=== PATIENT | male | born 1950 | race Hispanic/Latino ===

== ENCOUNTER 2017-07-09 21:16 | Observation (INO) | payer MEDICARE ==
[~2017-07-09] VITALS: Ht 177.8 cm; Wt 95.2 kg
[2017-07-09 21:51] LABS: BASOPHILS % (AUTO) 0.7 % (0.0-5.0); EOSINOPHILS % (AUTO) 4.2 % (0.0-8.0); LYMPHOCYTES % (AUTO) 69.6 % (21.0-51.0); MEAN CORPUSCULAR HEMOGLOBIN 30.5 pg (27.0-33.0); MEAN CORPUSCULAR HGB CONC 34.7 g/dL (32.0-36.0); MEAN CORPUSCULAR VOLUME 87.9 fL (79-99); MONOCYTES % (AUTO) 8.1 % (3.0-13.0); NEUTROPHILS % (AUTO) 17.4 % (40.0-77.0); NUCLEATED RED BLOOD CELLS 0.2 % (0.0-0.19); PLATELET COUNT (AUTO) 216 K/uL (130-400); RED CELL DISTRIBUTION WIDTH 13.6 % (11.0-15.5); WHITE BLOOD COUNT (AUTO) 3.7 K/uL (4.8-10.8)
[2017-07-09] MEDS ORDERED: MORPHINE SULFATE 2 MG/ML 1ML SYG ONE (21:54)
[2017-07-09 22:03] LABS: CREATININE 1.3 mg/dL (0.5-1.5); POTASSIUM 3.5 mmol/L (3.5-5.1)
[2017-07-09 22:04] LABS: INR 1.02 (0.85-1.15); PARTIAL THROMBOPLASTIN TIME 26.1 SEC (26.3-35.5); PROTHROMBIN TIME 10.7 SEC (9.6-11.6)
[2017-07-09 22:07] LABS: ALBUMIN 3.9 g/dL (3.5-5.0); BILIRUBIN,TOTAL 0.4 mg/dL (0.2-1.0); TOTAL PROTEIN, SERUM 7.9 g/dL (6.0-8.3)
[2017-07-09] MEDS ORDERED: KETOROLAC TROMETHAMINE 30MG/ML ONE (22:13)
[2017-07-09 22:28] LABS: B-TYPE NATRIURETIC PEPTIDE 9 pg/mL (0-100)
[2017-07-10] VITALS (29 sets, daily range): BP systolic 91–128; BP diastolic 52–79
[2017-07-10 05:34] LABS: BASOPHILS % (AUTO) 0.8 % (0.0-5.0); EOSINOPHILS % (AUTO) 3.8 % (0.0-8.0); HEMATOCRIT 46.5 % (42-54); LYMPHOCYTES % (AUTO) 49.3 % (21.0-51.0); MEAN CORPUSCULAR HGB CONC 35.4 g/dL (32.0-36.0); MEAN CORPUSCULAR VOLUME 87.6 fL (79-99); MONOCYTES % (AUTO) 8.4 % (3.0-13.0); NEUTROPHILS % (AUTO) 37.7 % (40.0-77.0); NUCLEATED RED BLOOD CELLS 0.1 % (0.0-0.19); PLATELET COUNT (AUTO) 202 K/uL (130-400); RED BLOOD CELL COUNT(AUTO) 5.31 MIL/uL (4.50-6.20); RED CELL DISTRIBUTION WIDTH 13.5 % (11.0-15.5); WHITE BLOOD COUNT (AUTO) 3.5 K/uL (4.8-10.8)
[2017-07-10 05:58] LABS: INR 1.02 (0.85-1.15); PARTIAL THROMBOPLASTIN TIME 26.4 SEC (26.3-35.5); PROTHROMBIN TIME 10.7 SEC (9.6-11.6)
[2017-07-10 06:14] LABS: ALBUMIN 3.3 g/dL (3.5-5.0); BILIRUBIN,TOTAL 0.4 mg/dL (0.2-1.0); CREATININE 1.2 mg/dL (0.5-1.5); POTASSIUM 4.1 mmol/L (3.5-5.1); TOTAL PROTEIN, SERUM 6.8 g/dL (6.0-8.3)
[2017-07-10] MEDS ORDERED: LACTATED RINGERS 1000ML 1,000 ML IV ONE (06:16)
[2017-07-10] MEDS ORDERED: LEVOFLOXACIN 500 MG/D5W 100 ML 100 ML ONE (06:43)
[2017-07-10] MEDS ORDERED: FENTANYL CITRATE PF 50 MCG/1 ML 2ML VIAL ONE (06:45)
[2017-07-10] MEDS ORDERED: MIDAZOLAM HCL 1 MG/ML 2ML VIAL ONE (06:45)
[2017-07-10] MEDS ORDERED: PROPOFOL 10 MG/ML 20ML VIAL IV ONE (06:45)
[2017-07-10] MEDS ORDERED: LEVOFLOXACIN 500 MG/D5W 100 ML 100 ML IV ONE (06:45)
[2017-07-10] MEDS ORDERED: LIDOCAINE PF 2% 5ML ABBOJECT ONE (06:45)
[2017-07-10] MEDS ORDERED: OPIUM/BELLADONNA ALKALOIDS 1 EACH SUPP.RECT RC ONE (08:26)
[2017-07-10] MEDS ORDERED: PHENAZOPYRIDINE HCL 200 MG TABLET ONE (08:47)
== END 2017-07-10 12:40 | disposition home or self-care (01) ==
LOC: EDH 21:16 → EDHIP 21:45 → DAHIP 07-10 08:00 → EDHIP 07-10 08:00
PROVIDERS: ADMIT Family Medicine; ATTEND Family Medicine
DX: N32.0 Bladder-neck obstruction (principal); I10 Essential (primary) hypertension; Z85.46 Personal history of malignant neoplasm of prostate; Z92.21 Personal history of antineoplastic chemotherapy; Z90.49 Acquired absence of other specified parts of digestive tract; Z98.49 Cataract extraction status, unspecified eye
CPT/HCPCS: 36415 ×2; 52500; 71045 ×2; 80053 ×2; 83880; 84484; 85025 ×2; 85610 ×2; 85730 ×2; 93005 ×2; 99285; A4344; A4354; A4358; A4600; A4930; C1769 ×2; G0378 ×15; J1885; J1956; J2001; J2250; J2704; J3010; J7030; J7120

== ENCOUNTER 2017-07-11 11:11 | Emergency (ER) | payer MEDICARE | END 2017-07-11 12:07 | disposition home or self-care (01) | LOC: EDH 11:11 | DX: T83.091A Other mechanical complication of indwelling urethral catheter, initial encounter (principal); I10 Essential (primary) hypertension; C61 Malignant neoplasm of prostate; Z98.890 Other specified postprocedural states | CPT/HCPCS: 99281 ==

== ENCOUNTER 2020-06-06 13:08 | Emergency (ER) | payer MEDICARE ==
[2020-06-06 15:14] LABS: BASOPHILS % (AUTO) 0.6 % (0.0-5.0); EOSINOPHILS % (AUTO) 2.2 % (0.0-8.0); HEMATOCRIT 46.8 % (42-54); LYMPHOCYTES % (AUTO) 41.2 % (21.0-51.0); MEAN CORPUSCULAR HEMOGLOBIN 30.9 pg (27.0-33.0); MEAN CORPUSCULAR HGB CONC 35.5 g/dL (32.0-36.0); MEAN CORPUSCULAR VOLUME 87.2 fL (79-99); MONOCYTES % (AUTO) 10.5 % (3.0-13.0); NEUTROPHILS % (AUTO) 45.3 % (40.0-77.0); PLATELET COUNT (AUTO) 201 K/uL (130-400); RED BLOOD CELL COUNT(AUTO) 5.37 MIL/uL (4.50-6.20); RED CELL DISTRIBUTION WIDTH 13.1 % (11.0-15.5); WHITE BLOOD COUNT (AUTO) 5.1 K/uL (4.8-10.8)
[2020-06-06 15:33] LABS: APPEARANCE,URINE Clear (CLEAR); BILIRUBIN,URINE Negative (NEGATIVE); COLOR,URINE Yellow (YELLOW); GLUCOSE, URINE (UA) Negative (NEGATIVE); KETONES,URINE Negative (NEGATIVE); LEUKOCYTE ESTERASE ,URINE Moderate (NEGATIVE); NITRATE,URINE Negative (NEGATIVE); OCCULT BLOOD,URINE Negative (NEGATIVE); PH,URINE 7.5 (5.0-8.0); PROTEIN,URINE Negative (NEGATIVE)
[2020-06-06 15:39] LABS: CREATININE 1.4 mg/dL (0.5-1.5); POTASSIUM 4.1 mmol/L (3.5-5.1)
[2020-06-06 15:43] LABS: ALBUMIN 3.7 g/dL (3.5-5.0); BILIRUBIN,TOTAL 0.4 mg/dL (0.2-1.0); TOTAL PROTEIN, SERUM 7.7 g/dL (6.0-8.3)
[2020-06-06 15:52] LABS: BACTERIA,URINE Rare /HPF (None Seen); RBC,URINE 0-1 /HPF (0-1); SQUAMOUS EPITHELIAL CELL,UR Rare /HPF (0-2)
[2020-06-06] MEDS ORDERED: LIDOCAINE HCL-MPF 1% 2ML VIAL ONE (16:24)
[2020-06-06] MEDS ORDERED: PHENAZOPYRIDINE HCL 200 MG TABLET ONE (16:25)
[2020-06-06] MEDS ORDERED: CEFTRIAXONE SODIUM 1 GM ONE (16:25)
== END 2020-06-06 16:39 | disposition home or self-care (01) ==
LOC: EDH 13:08
DX: N39.0 Urinary tract infection, site not specified (principal); I10 Essential (primary) hypertension; Z85.46 Personal history of malignant neoplasm of prostate; Z87.891 Personal history of nicotine dependence
CPT/HCPCS: 36415; 80053; 81001; 85025; 87077; 87088; 87186; 96372; 99283; J0696; J3490

== ENCOUNTER 2020-07-13 16:05 | Emergency (ER) | payer MEDICARE ==
[2020-07-13] MEDS ORDERED: KETOROLAC TROMETHAMINE 30MG/ML ONE (17:02)
== END 2020-07-13 18:52 | disposition home or self-care (01) ==
LOC: EDH 16:05
DX: S16.1XXA Strain of muscle, fascia and tendon at neck level, initial encounter (principal); I10 Essential (primary) hypertension; V49.19XA Passenger injured in collision with other motor vehicles in nontraffic accident, initial encounter; Y93.89 Activity, other specified; Y92.89 Other specified places as the place of occurrence of the external cause; Y99.8 Other external cause status
CPT/HCPCS: 70450; 71045; 72125; 96374; 99285; J1885

== ENCOUNTER 2023-08-09 06:59 | Day surgery (SDC) | payer MEDICARE ==
[2023-08-07 12:00] LABS: BASOPHILS # (AUTO) 0.02 K/uL (0.00-0.20); BASOPHILS % (AUTO) 0.8 % (0.0-5.0); EOSINOPHILS # (AUTO) 0.14 K/uL (0.00-0.70); EOSINOPHILS % (AUTO) 5.3 % (0.0-8.0); HEMATOCRIT 42.4 % (42-54); IMMATURE GRANULOCYTE ABSOLUTE 0.01 K/uL (0-1); LYMPHOCYTES # (AUTO) 1.1 K/uL (1.0-4.8); LYMPHOCYTES % (AUTO) 42.4 % (21.0-51.0); MEAN CORPUSCULAR HEMOGLOBIN 30.5 pg (27.0-33.0); MEAN CORPUSCULAR HGB CONC 35.4 g/dL (32.0-36.0); MEAN CORPUSCULAR VOLUME 86.2 fL (79-99); MONOCYTES # (AUTO) 0.3 K/uL (0.1-1.0); MONOCYTES % (AUTO) 10.2 % (3.0-13.0); NEUTROPHILS # (AUTO) 1.1 K/uL (1.8-7.7); NEUTROPHILS % (AUTO) 40.9 % (40.0-77.0); PLATELET COUNT (AUTO) 269 K/uL (130-400); RED BLOOD CELL COUNT(AUTO) 4.92 MIL/uL (4.50-6.20); RED CELL DISTRIBUTION WIDTH 13.3 % (11.0-15.5); WHITE BLOOD COUNT (AUTO) 2.6 K/uL (4.8-10.8)
[2023-08-07 12:21] LABS: CREATININE 1.2 mg/dL (0.5-1.5); POTASSIUM 4.4 mmol/L (3.5-5.1)
[2023-08-07 12:26] VITALS: BP 138/80; PULSE 61; RESP 19
[2023-08-07 12:49] LABS: EOSINOPHILS % (MANUAL) 3 % (1-6); LYMPHOCYTES % (MANUAL) 41 % (22-44); MAN.DIFF COMMENT-IMPRESSION MANUAL DIFFERENTIAL; MONOCYTES % (MANUAL) 6 % (2-9); SEGMENTED NEUTROPHILS % 50 % (40-70); TOTAL CELLS COUNTED 100
[2023-08-07 12:50] LABS: PLATELET MORPHOLOGY COMMENT ADEQUATE; WBC MORPHOLOGY NORMAL
[~2023-08-09] VITALS: Ht 172.7 cm; Wt 97.0 kg
[2023-08-09] VITALS (17 sets, daily range): BP systolic 113–137; BP diastolic 69–81; PULSE 53–65; RESP 14–16
[~2023-08-09 06:59] MED LIST: AEC81 PO; AMLO-258 PO; ATOR40TA71 PO; BICA50TA7 PO; CLOP75TA32; OMEP40CA21 PO
[2023-08-09] MEDS ORDERED: BACITRACIN 28.4 GM OINT TP ONE (07:52)
[2023-08-09] MEDS: LACTATED RINGERS 1000ML 1,000 ML IV ONE (08:16)
[2023-08-09] MEDS: CEFAZOLIN SODIUM 2 GM VIAL ONE (08:16)
[2023-08-09] MEDS ORDERED: PROPOFOL 1000 MG/100 ML 100 ML IV ONE (08:22)
[2023-08-09] MEDS ORDERED: KETAMINE 50MG/ML SYRINGE 50 MG/ML DISP.SYRIN ONE (08:23)
[2023-08-09] MEDS ORDERED: FENTANYL CITRATE PF 50 MCG/1 ML 2ML VIAL ONE (08:27)
[2023-08-09] MEDS ORDERED: MIDAZOLAM HCL 1 MG/ML 2ML VIAL ONE (08:27)
[2023-08-09] MEDS: BUPIVACAINE/PF 0.25% 30ML VIAL IJ ONE (09:05)
[2023-08-09] MEDS: LIDOCAINE HCL 1% MDV 50ML VIAL ONE (09:05)
== END 2023-08-09 10:55 | disposition home or self-care (01) ==
LOC: DAH 06:59
PROVIDERS: ATTEND Urology
DX: N50.89 Other specified disorders of the male genital organs (principal); L82.1 Other seborrheic keratosis; K21.9 Gastro-esophageal reflux disease without esophagitis; M06.9 Rheumatoid arthritis, unspecified; Z79.01 Long term (current) use of anticoagulants; Z98.890 Other specified postprocedural states; Z90.49 Acquired absence of other specified parts of digestive tract; Z86.73 Personal history of transient ischemic attack (TIA), and cerebral infarction without residual deficits; Z92.3 Personal history of irradiation
CPT/HCPCS: 93005; 80048; 85025; 36415; 11422; 88304; A6260; A4663; J7120; J3010; J0665; J2250; J2704; J3490 ×2; J0690; A4215; A4223; A4222; A4221; A4510; A4600